=== PATIENT | male | born 1955 | race Caucasian/White ===

== ENCOUNTER 2023-09-11 19:49 | Inpatient (IN) | payer MEDICARE, MEDICAID ==
[~2023-09-11] VITALS: Ht 182.9 cm; Wt 99.3 kg
[2023-09-11 20:29] LABS: BASOPHILS # (AUTO) 0.1 K/uL (0.0-0.2); EOSINOPHILS # (AUTO) 0.2 K/uL (0.0-0.7); EOSINOPHILS % (AUTO) 3.3 % (0.0-6.0); HEMATOCRIT 47 % (39-51); HEMOGLOBIN 16.5 g/dL (13.5-17.5); LYMPHOCYTES # (AUTO) 3.2 K/uL (0.8-4.8); LYMPHOCYTES % (AUTO) 42.7 % (20.0-44.0); MEAN CORPUSCULAR HEMOGLOBIN 30 PG (26.0-33.0); MEAN CORPUSCULAR HGB CONC 35 g/dl (31.0-36.0); MEAN CORPUSCULAR VOLUME 85 fL (80-96); MONOCYTES # (AUTO) 0.6 K/uL (0.1-1.30); MONOCYTES % (AUTO) 8.4 % (2.0-12.0); NEUTROPHILS # (AUTO) 3.3 K/uL (1.8-8.9); NEUTROPHILS % (AUTO) 44.6 % (43.0-81.0); PLATELET COUNT (AUTO) 219 K/uL (150-450); RED BLOOD CELL COUNT(AUTO) 5.53 MIL/uL (4.5-6.0); RED CELL DISTRIBUTION WIDTH 13.2 % (11.5-15.0); WHITE BLOOD COUNT (AUTO) 7.4 K/uL (4.3-11.0)
[2023-09-11 20:42] LABS: CALCIUM, SERUM 9.1 mg/dL (8.5-10.1); CARBON DIOXIDE 29 mmol/L (21-32); CHLORIDE 101 mmol/L (98-107); CREATININE 1.7 mg/dL (0.6-1.3); GLUCOSE 136 mg/dL (74-106); POTASSIUM 3.4 mmol/L (3.5-5.1); SODIUM SERUM 139 mmol/L (136-145); UREA NITROGEN, BLOOD 21 mg/dL (7-18)
[2023-09-11 22:34] VITALS: BP 142/94; TEMP 97.5; O2SAT 95
[2023-09-11] MEDS ORDERED: ONDANSETRON HCL/PF 4 MG/2 ML VIAL IVP PRN (23:00)
[2023-09-11] MEDS ORDERED: ACETAMINOPHEN 325 MG TABLET PO PRN (23:00)
[2023-09-11] MEDS: IV NS 0.9% 1,000 ML IV PRN (23:30)
[2023-09-11] MEDS: POTASSIUM CL. PREMIX PERIPHER. 50 ML IV SCH (23:36)
[2023-09-11] MEDS: ENOXAPARIN SODIUM 40 MG/0.4 ML DISP.SYRIN SQ SCH (23:39)
[2023-09-12] VITALS: BP 136/94; TEMP 97.8; O2SAT 95
[2023-09-12 04:00] VITALS: BP 143/93; TEMP 97.9; O2SAT 93
[2023-09-12 06:55] LABS: BASOPHILS % (AUTO) 0.6 % (0.0-2.0); EOSINOPHILS % (AUTO) 0.6 % (0.0-6.0); HEMATOCRIT 44 % (39-51); HEMOGLOBIN 15.1 g/dL (13.5-17.5); LYMPHOCYTES # (AUTO) 2.1 K/uL (0.8-4.8); LYMPHOCYTES % (AUTO) 28.4 % (20.0-44.0); MEAN CORPUSCULAR HEMOGLOBIN 30 PG (26.0-33.0); MEAN CORPUSCULAR HGB CONC 34 g/dl (31.0-36.0); MEAN CORPUSCULAR VOLUME 86 fL (80-96); MONOCYTES # (AUTO) 0.3 K/uL (0.1-1.30); MONOCYTES % (AUTO) 4.6 % (2.0-12.0); NEUTROPHILS # (AUTO) 4.8 K/uL (1.8-8.9); NEUTROPHILS % (AUTO) 65.8 % (43.0-81.0); PLATELET COUNT (AUTO) 188 K/uL (150-450); RED BLOOD CELL COUNT(AUTO) 5.12 MIL/uL (4.5-6.0); RED CELL DISTRIBUTION WIDTH 13.4 % (11.5-15.0); WHITE BLOOD COUNT (AUTO) 7.4 K/uL (4.3-11.0)
[2023-09-12] MEDS ORDERED: HYDR25TA4 PO (07:44)
[2023-09-12] MEDS ORDERED: LEVO25TA7 PO (07:45)
[2023-09-12] MEDS ORDERED: HYDR-4076 PO (07:45)
[2023-09-12] MEDS ORDERED: CLOP75TA15 PO (07:45)
[2023-09-12] MEDS ORDERED: ATOR80TA PO (07:45)
[2023-09-12] MEDS ORDERED: ICOS1CAP PO (07:45)
[2023-09-12] MEDS ORDERED: MAGN400T8 PO (07:45)
[2023-09-12] MEDS ORDERED: LOSA50TA39 PO (07:45)
[2023-09-12] MEDS ORDERED: ISOS30TA86 PO (07:45)
[2023-09-12] MEDS ORDERED: CHOL200059 PO (07:45)
[2023-09-12] MEDS ORDERED: POLY15DR31 EACHEYE (07:45)
[2023-09-12] MEDS ORDERED: SACU1TAB7 PO (07:45)
[2023-09-12] MEDS ORDERED: RIVA15TA PO (07:45)
[2023-09-12] MEDS ORDERED: SOTA120T22 PO (07:45)
[2023-09-12 08:07] LABS: CALCIUM, SERUM 9.1 mg/dL (8.5-10.1); CREATININE 1.7 mg/dL (0.6-1.3); MAGNESIUM 2.4 mg/dL (1.8-2.4); PHOSPHORUS 3.3 mg/dL (2.5-4.9); POTASSIUM 3.6 mmol/L (3.5-5.1)
[2023-09-12 08:51] VITALS: BP 163/88; TEMP 97.9; O2SAT 95
[2023-09-12] MEDS ORDERED: LOSARTAN POTASSIUM 50 MG TABLET PO SCH (09:00)
[2023-09-12] MEDS: CLOPIDOGREL BISULFATE 75 MG TABLET PO SCH (09:33)
[2023-09-12] MEDS: PANTOPRAZOLE 40 MG VIAL IV SCH (09:33)
[2023-09-12] MEDS: hydrALAZINE HCL 25 MG TABLET PO SCH (09:33)
[2023-09-12] MEDS: ATORVASTATIN 40 MG TABLET PO SCH (09:33)
[2023-09-12] MEDS: SOTALOL HCL 80 MG TABLET PO SCH (09:34)
[2023-09-12] MEDS: RIVAROXABAN 15 MG TABLET PO SCH (09:35)
[2023-09-12] MEDS: ISOSORBIDE MONONITRATE (30MG) 30 MG TAB.SR.24H PO SCH (09:35)
[2023-09-12] MEDS: LEVOTHYROXINE SODIUM 25 MCG TABLET PO SCH (09:38)
[2023-09-12] MEDS: SACUBITRIL/VALSARTAN 1 EACH TABLET PO SCH (09:40)
[2023-09-12 12:00] VITALS: BP 156/97; TEMP 98; O2SAT 97
[2023-09-12 16:21] VITALS: BP 131/90; TEMP 97.8; O2SAT 97
[2023-09-12 20:00] VITALS: BP 127/80; TEMP 97.7; O2SAT 95
[2023-09-13] VITALS: BP 130/91; TEMP 97.9; O2SAT 96
[2023-09-13 04:00] VITALS: BP 129/88; TEMP 97.9; O2SAT 96
[2023-09-13 06:46] LABS: BASOPHILS # (AUTO) 0.1 K/uL (0.0-0.2); BASOPHILS % (AUTO) 0.9 % (0.0-2.0); EOSINOPHILS # (AUTO) 0.2 K/uL (0.0-0.7); EOSINOPHILS % (AUTO) 3.9 % (0.0-6.0); HEMATOCRIT 42 % (39-51); HEMOGLOBIN 14.9 g/dL (13.5-17.5); MEAN CORPUSCULAR HEMOGLOBIN 30 PG (26.0-33.0); MEAN CORPUSCULAR HGB CONC 35 g/dl (31.0-36.0); MEAN CORPUSCULAR VOLUME 86 fL (80-96); MONOCYTES # (AUTO) 0.5 K/uL (0.1-1.30); MONOCYTES % (AUTO) 7.6 % (2.0-12.0); NEUTROPHILS # (AUTO) 3.2 K/uL (1.8-8.9); NEUTROPHILS % (AUTO) 54.6 % (43.0-81.0); PLATELET COUNT (AUTO) 177 K/uL (150-450); RED BLOOD CELL COUNT(AUTO) 4.94 MIL/uL (4.5-6.0); WHITE BLOOD COUNT (AUTO) 5.9 K/uL (4.3-11.0)
[2023-09-13 06:57] LABS: BILIRUBIN,TOTAL 0.5 mg/dL (0.2-1.0); CALCIUM, SERUM 8.7 mg/dL (8.5-10.1); CREATININE 1.2 mg/dL (0.6-1.3); MAGNESIUM 2.1 mg/dL (1.8-2.4); POTASSIUM 3.3 mmol/L (3.5-5.1); TOTAL PROTEIN, SERUM 6.8 g/dL (6.4-8.2)
[2023-09-13] MEDS: PANTOPRAZOLE 40 MG TABLET.DR PO SCH (08:25)
[2023-09-13 10:36] VITALS: BP 171/109
[2023-09-13] MEDS: hydrALAZINE HCL IV 20 MG VIAL IV PRN (10:36)
[2023-09-13] MEDS ORDERED: HYDR-4076 PO (11:06)
[2023-09-13] MEDS: POTASSIUM CHLORIDE 20 MEQ TAB.PRT.SR PO SCH (11:34)
[2023-09-14 09:12] LABS: PTH, INTACT 62 pg/mL (15-65)
[2023-09-14 14:11] LABS: *SPE A/G RATIO 0.9 (0.7-1.7); *SPE ALPHA-1-GLOBULIN 0.2 g/dL (0.0-0.4); *SPE ALPHA-2-GLOBULIN 0.9 g/dL (0.4-1.0); *SPE BETA GLOBULIN 1.1 g/dL (0.7-1.3); *SPE GLOBULIN, TOTAL 3.3 g/dL (2.2-3.9); *SPE M-SPIKE Not Observed g/dL (Not Observed); *SPE PROTEIN TOTAL 6.3 g/dL (6.0-8.5); *SPEGAMMA GLOBULIN 1.1 g/dL (0.4-1.8)
== END 2023-09-13 12:30 | disposition home health service (06) | DRG 640 ==
LOC: ER 19:58 → TELE 21:46 → MED 09-13 12:24
PROVIDERS: ADMIT Nurse Practitioner Acute Care; ATTEND Nurse Practitioner Acute Care
DX: E86.0 Dehydration (principal); N17.0 Acute kidney failure with tubular necrosis; D68.59 Other primary thrombophilia; E87.6 Hypokalemia; I25.10 Atherosclerotic heart disease of native coronary artery without angina pectoris; Z95.1 Presence of aortocoronary bypass graft; E66.9 Obesity, unspecified; I10 Essential (primary) hypertension; E78.5 Hyperlipidemia, unspecified; Z91.148 Patient's other noncompliance with medication regimen for other reason; Z68.29 Body mass index [BMI] 29.0-29.9, adult; E03.9 Hypothyroidism, unspecified; Z79.890 Hormone replacement therapy; Z79.899 Other long term (current) drug therapy; Z79.01 Long term (current) use of anticoagulants; Z79.02 Long term (current) use of antithrombotics/antiplatelets
CPT/HCPCS: 36415; 71045-TC; 76770-TC; 80048-TC; 80053-TC; 80061-TC; 82550-TC; 82962-TC; 83735-TC; 83880; 83970; 84100-TC; 84155; 84165; 84484-TC; 85025-TC; 93307-TC; A4223; C9113; G0378; J0360; J1650; J3480; J7030